=== PATIENT | female | born 1950 | race Caucasian/White ===

== ENCOUNTER 2020-08-27 12:57 | Outpatient (CLI) | payer MEDICARE, BC, SELFPAY | END 2020-08-27 12:58 | disposition home or self-care (01) | LOC: ANHAUDIO 12:59 | PROVIDERS: PCP Internal Medicine; Visit Provider Otolaryngology | DX: H93.19 Tinnitus, unspecified ear (principal); H90.3 Sensorineural hearing loss, bilateral | CPT/HCPCS: 92557; 92567 ==

== ENCOUNTER → 2020-10-02 13:18 | Outpatient (CLI) | payer MEDICARE, BC, SELFPAY ==
--- NOTE | ~2020-10-02 | MM_ITS ---
EXAMINATION: MM screening [facility] w [facility] HISTORY: Screening TECHNIQUE: Craniocaudal and mediolateral oblique 3-D tomosynthesis images were obtained and synthetic 2-D images were generated. CAD analysis was submitted and interpreted. COMPARISON: Comparison to multiple prior studies sequentially, with oldest reviewed study dated 08/29. BREAST PARENCHYMAL COMPOSITION: The breasts are heterogeneously dense, which may obscure small masses . FINDINGS: There is no evidence of suspicious mass, calcification, or architectural distortion to sugg est malignancy in either breast. There has been no suspicious interval change. IMPRESSION: 1. No mammographic evidence of malignancy. 2. Recommend routine screening mammography in one year. BI-RADS Category 2: Benign finding(s). Reviewed, dictated and finalized at location D. OLOGY MANAGER
== END ==
PROVIDERS: Visit Provider Nurse Practitioner
DX: Z12.31 Encounter for screening mammogram for malignant neoplasm of breast (principal)
CPT/HCPCS: 77063; 77067

== ENCOUNTER → 2021-04-29 10:31 | Outpatient (CLI) | payer MEDICARE, BC, SELFPAY ==
--- NOTE | ~2021-04-29 | DEXA_ITS ---
Bone Density Report Name: Maxine Fajardo Age: 70 Sex: Female Ethnicity: White Date of : 1950 Indication: postmenopausal; screening for osteoporosis; height loss; hysterectomy; Referring Provider: Queenie Farley Study: Bone densitometry was performed. Exam Date: April 29, 2021 Accession number: [id number] Bone Density: Region BMD T-score Z-score Classification AP Spine (L1-L4) 1.018 -0.3 1.9 Normal Femoral Neck (Left) 0.851 0.0 1.9 Normal Total Hip (Left) 0.939 0.0 1.6 Normal Femoral Neck (Right) 0.936 0.8 2.7 Normal Total Hip (Right) 0.935 -0.1 1.5 Normal Total Hip Mean 0.937 -0.1 1.6 Normal World Health Organization criteria for BMD impression classify patients as: Normal (T-score at or above -1.0), Osteopenia (T-score between -1.0 and -2.5), or Osteoporosis (T-score at or below -2.5). 10-year Fracture Risk: FRAX not reported because: All T-scores for Spine Total, Hip Total, Femoral Neck at or above -1.0 Previous Exams: Region Exam Age BMD T-score BMD Change BMD Change Date g/cm2 vs Baseline vs Previous AP Spine(L1-L4) 04/29/2021 70 1.018 -0.3 0.010 0.014 01/02/2019 68 1.005 -0.4 -0.003 -0.049 12/23/2011 61 1.054 0.1 0.046* 0.046* 07/27/2008 57 1.008 -0.4 Total Hip(Left) 04/29/2021 70 0.939 0.0 0.046 -0.012 01/02/2019 68 0.951 0.1 0.058 0.024 12/23/2011 61 0.927 -0.1 0.034* 0.034* 07/27/2008 57 0.893 -0.4 Total Hip(Right) 04/29/2021 70 0.935 -0.1 0.001 0.031* 01/02/2019 68 0.904 -0.3 -0.030 -0.019 12/23/2011 61 0.923 -0.2 -0.011 -0.011 07/27/2008 57 0.934 -0.1 *Denotes significance at 95% confidence level, LSC for AP Spine = 0.022 g/cm2, LSC for Total Hip = 0.027 g/cm2 Clinical Information Provided by Patient: Has used the following medications: Vitamin D Has the following medical conditions: Hysterectomy Patient maximum height was 64.5 Menopause Age: 51 No regular weight bearing exercise Drinks caffeinated beverages Onset of menses at age 11 Number of children 1 Impression: The patient has normal bone mass. No significant bone loss was observed. Discussion: BONE DENSITY IS ABOVE THE MINIMUM DESIRABLE LEVEL AT ALL SKELETAL SITES TESTED. This patient?s bone mineral density is above the minimum jan
== END ==
PROVIDERS: PCP Internal Medicine; Visit Provider Nurse Practitioner
DX: Z78.0 Asymptomatic menopausal state (principal)
CPT/HCPCS: 77080

== ENCOUNTER → 2022-02-10 13:12 | Outpatient (CLI) | payer MEDICARE, BC, SELFPAY ==
--- NOTE | ~2022-02-10 | MM_ITS ---
EXAMINATION: MM screening [facility] BI w costa HISTORY: Screening mammogram TECHNIQUE: Craniocaudal and mediolateral oblique 3-D tomosynthesis images were obtained and synthetic 2-D images were generated. CAD analysis was submitted and interpreted. COMPARISON: 10/02/2020, 01/02/2019, 04/05/2017 BREAST PARENCHYMAL COMPOSITION: There are scattered areas of fibroglandular density. FINDINGS: Scattered benign-appearing calcifications are present. There is no suspicious mass, calcifi cation, or architectural distortion to suggest malignancy in either breast. There has been no suspici ous interval change. IMPRESSION: 1. No mammographic evidence of malignancy. 2. Recommend routine screening mammography in one year. BI-RADS Category 2: Benign finding(s). Reviewed, dictated and finalized at location A.
== END ==
PROVIDERS: PCP Internal Medicine; Visit Provider Nurse Practitioner
DX: Z12.31 Encounter for screening mammogram for malignant neoplasm of breast (principal)
CPT/HCPCS: 77063; 77067

== ENCOUNTER 2022-07-13 11:20 | Outpatient (CLI) | payer MEDICARE, BC, SELFPAY ==
--- NOTE | ~2022-07-13 | XR_ITS ---
EXAMINATION: XR foot RT min 3V DATE: 07/13/2022 11:56 INDICATION: Right foot pain TECHNIQUE: Dorsoplantar, lateral, and 2 oblique views of the right foot were obtained. COMPARISON: None. FINDINGS: There is no fracture, dislocation, or subluxation. There is moderate osteoarthritis of mult iple interphalangeal joints and at the first metatarsophalangeal joint. The soft tissues are unremark able. Posterior and plantar calcaneal enthesophytes are noted. IMPRESSION: 1. Polyarticular osteoarthritis without acute osseous abnormality. Reviewed, dictated and finalized at location A.
--- NOTE | ~2022-07-13 | XR_ITS ---
EXAMINATION: XR lumbar spine 2-3V DATE: 07/13/2022 11:55 INDICATION: Low back pain TECHNIQUE: Anteroposterior and lateral views of the lumbar spine, and cone-down lateral view of the l umbosacral junction were obtained. COMPARISON: 01/17/2019 FINDINGS: There are 2 mm of stable anterolisthesis of L3 on L4 and 6 mm of stable anterolisthesis of L4 on L5. The vertebral body heights are normal. There is mild loss of intervertebral disc space heig ht at L4-5 and L5-S1. There is no fracture. There is moderate osteoarthritis of the lower lumbar spin e. Calcified atherosclerosis is noted. Small degenerative osteophytes project from the anterior endpl ates of multiple vertebral bodies. IMPRESSION: 1. Moderate lumbar spondylosis without acute findings or significant interval change. Reviewed, dictated and finalized at location A.
--- NOTE | ~2022-07-13 | XR_ITS ---
EXAMINATION: XR foot LT min 3V DATE: 07/13/2022 11:55 INDICATION: Left foot pain TECHNIQUE: Dorsoplantar, lateral, and 2 oblique views of the left foot were obtained. COMPARISON: None. FINDINGS: There is a healed fracture of the fifth metatarsal. No acute fracture is identified. There is moderate osteoarthritis of multiple interphalangeal joints and mild osteoarthritis at the first me tatarsophalangeal joint. The soft tissues are unremarkable. Posterior and plantar calcaneal enthesoph ytes are noted. IMPRESSION: 1. Polyarticular osteoarthritis without acute osseous abnormality. Reviewed, dictated and finalized at location A.
== END 2022-07-13 11:21 | disposition home or self-care (01) ==
PROVIDERS: PCP Internal Medicine; Visit Provider Internal Medicine
DX: M19.071 Primary osteoarthritis, right ankle and foot (principal); M19.072 Primary osteoarthritis, left ankle and foot; M47.896 Other spondylosis, lumbar region
CPT/HCPCS: 72100; 73630

== ENCOUNTER → 2023-04-22 12:36 | Outpatient (CLI) | payer MEDICARE, BC, SELFPAY ==
--- NOTE | ~2023-04-22 | MM_ITS ---
EXAMINATION: MM screening [facility] BI w [facility] HISTORY: Screening mammogram TECHNIQUE: Craniocaudal and mediolateral oblique 3-D tomosynthesis images were obtained and synthetic 2-D images were generated. CAD analysis was submitted and interpreted. COMPARISON: 02/10/2022, 10/02/2020, 01/02/2019 BREAST PARENCHYMAL COMPOSITION: There are scattered areas of fibroglandular density. FINDINGS: Scattered benign-appearing calcifications are present. No suspicious mass, calcification, o r architectural distortion are identified in either breast to suggest malignancy. There has been no s uspicious interval change. IMPRESSION: 1. No mammographic evidence of malignancy. 2. Recommend routine screening mammography in one year. BI-RADS Category 2: Benign finding(s). Reviewed, dictated and finalized at location A.
== END ==
PROVIDERS: PCP Family Medicine; Visit Provider Family Medicine
DX: Z12.31 Encounter for screening mammogram for malignant neoplasm of breast (principal)
CPT/HCPCS: 77063; 77067

== ENCOUNTER → 2023-09-24 09:54 | Outpatient (CLI) | payer MEDICARE, BC, SELFPAY ==
--- NOTE | ~2023-09-24 | XR_ITS ---
EXAMINATION: XR_[id number]_CR DATE: 09/24/2023 10:09 INDICATION: Left foot pain. TECHNIQUE: 4 views of left foot standing were obtained. COMPARISON: None. FINDINGS: Bone alignment is normal. No acute fracture. There is an old healed fracture of diaphysis o f fifth metatarsal. There is moderate osteoarthritis of second tarsometatarsal joint. There is mild o steoarthritis of first metatarsophalangeal joint and some the interphalangeal joints. There are enthe sophytes at the posterior and plantar aspects of calcaneal tuberosity. IMPRESSION: 1. Polyarticular osteoarthritis. Reviewed, dictated and finalized at location E.
--- NOTE | ~2023-09-24 | XR_ITS ---
EXAMINATION: XR_[id number]_CR DATE: 09/24/2023 10:09 INDICATION: Right foot pain. TECHNIQUE: 4 views of right foot standing were obtained. COMPARISON: None. FINDINGS: Bone alignment is normal. No fracture. There is mild osteoarthritis of first metatarsophala ngeal joint and some of the interphalangeal joints and midfoot joints. There is moderate osteoarthrit is of second tarsometatarsal joint. There are enthesophytes at the posterior and plantar aspects of c alcaneal tuberosity. IMPRESSION: 1. Polyarticular osteoarthritis. Reviewed, dictated and finalized at location E.
== END ==
PROVIDERS: PCP Family Medicine; Visit Provider Family Medicine
DX: M19.071 Primary osteoarthritis, right ankle and foot (principal); M19.072 Primary osteoarthritis, left ankle and foot
CPT/HCPCS: 73630

== ENCOUNTER 2024-07-28 10:35 | Outpatient (CLI) | payer MEDICARE, BC, SELFPAY ==
--- NOTE | ~2024-07-28 | DEXA_ITS ---
Bone Density Report Name: DAVE MCPHERSON Age: 73 Sex: Female Ethnicity: White Date of : 1950 Indication: postmenopausal; screening for osteoporosis; hysterectomy; Referring Provider: RA YOUNG Study: Bone densitometry was performed. Exam Date: July 28, 2024 Accession number: [id number] Bone Density: Region BMD T-score Z-score Classification AP Spine(L1-L4) 1.042 0.0 2.3 Normal Femoral Neck (Left) 0.884 0.3 2.4 Normal Total Hip (Left) 1.003 0.5 2.3 Normal Femoral Neck (Right) 0.866 0.2 2.2 Normal Total Hip (Right) 1.000 0.5 2.2 Normal Total Hip Mean 1.002 0.5 2.3 Normal World Health Organization criteria for BMD impression classify patients as: Normal (T-score at or above -1.0), Osteopenia (T-score between -1.0 and -2.5), or Osteoporosis (T-score at or below -2.5). 10-year Fracture Risk: FRAX not reported because: All T-scores for Spine Total, Hip Total, Femoral Neck at or above -1.0 Clinical Information Provided by Patient: Has used the following medications: Vitamin D Has the following medical conditions: Hysterectomy Patient maximum height was 63 No regular weight bearing exercise Does not regularly consume dairy products Drinks caffeinated beverages Onset of menses at age 11 Number of children 1 Impression: The patient has normal bone mass. Discussion: LOW RISK OF FRACTURE; BONE DENSITY IS WELL ABOVE THE MINIMUM DESIRABLE LEVEL AND ABOVE AVERAGE FOR AGE AND SEX AT ALL SKELETAL SITES TESTED. This person's bone density is above expected limits for age and sex. This is rarely clinically significant, but should be pursued if there are significant musculoskeletal complaints. The patient should follow a healthful lifestyle (good nutrition with adequate calcium and vitamin D, and appropriate weight-bearing exercise). Follow-Up: Consider repeating this study in 5 years or sooner if there is some new clinical indication. Reported by: ELVIE on 07/28/2024 11:05:00 AM. Reviewed, dictated and finalized at location ACarol CONROY
== END 2024-07-28 10:36 | disposition home or self-care (01) ==
PROVIDERS: PCP Family Medicine; Visit Provider Family Medicine
DX: M85.88 Other specified disorders of bone density and structure, other site (principal)
CPT/HCPCS: 77080

== ENCOUNTER 2024-10-05 09:29 | Outpatient (CLI) | payer MEDICARE, BC, SELFPAY ==
--- NOTE | ~2024-10-05 | MM_ITS ---
EXAMINATION: MM screening [facility] w [facility] HISTORY: Screening TECHNIQUE: Craniocaudal and mediolateral oblique 3-D tomosynthesis images were obtained and synthetic 2-D images were generated. CAD analysis was submitted and interpreted. COMPARISON: Comparison to multiple prior studies sequentially, with oldest reviewed study dated 08/29. BREAST PARENCHYMAL COMPOSITION: Not dense: There are scattered areas of fibroglandular density. FINDINGS: There is no evidence of suspicious mass, calcification, or architectural distortion to sugg est malignancy in either breast. There has been no suspicious interval change. IMPRESSION: 1. No mammographic evidence of malignancy. 2. Recommend routine screening mammography in one year. BI-RADS Category 1: Negative Reviewed, dictated and finalized at location B. [employer]
== END 2024-10-05 09:30 | disposition home or self-care (01) ==
PROVIDERS: PCP Family Medicine; Visit Provider Family Medicine
DX: Z12.31 Encounter for screening mammogram for malignant neoplasm of breast (principal)
CPT/HCPCS: 77063; 77067

== ENCOUNTER 2025-01-09 10:01 | Emergency (ER) | payer MEDICARE, BC, SELFPAY ==
[2025-01-09 10:04] VITALS: BP 146/74; PULSE 85; RESP 16; TEMP 36.6; O2SAT 97
--- OUTSIDE RECORDS SUMMARY | 2025-01-09 11:03 | XMS_ITS | Continuity of Care Document ---
Author Organization [facility] Address [address] [place] [address] Phone Care Team Providers Care Flower Grower Name Role Phone Remigio Gupta DO Unavailable Unavailable Advance Directives Directive Yes / No Effective Date File Name No Information Encounters Encounter Description Practice Location Reason(s) For Visit Diagnoses Date Provider Providers Copied on Encounter [facility], [address], [place], [place], [id number], [place] tel:[phone] [facility] ([facility]) No Information [facility]. [address] [facility], [place], [address], [place]. tel: [phone] Family History Family Member Type Diagnosis Age At Onset No Information Payers Payer name Insurance type Covered libertarian ID Authoriza tion(s) No Information Social History Type Description Quantity Date Captured Comments Sex Female Smoking Status No Information Chief Complaint And Reason For Visit No Information Reason For Referral Reason For Referral No Information History Of Present Illness Encounter Date Complaint History Of Prese nt Illness No Information Functional Status Date Functional Assessmen t No Information Instructions Date Instruction Additional Infor mation No Information Assessments Type Assessment Date No Information Patient Care Teams Name Effective Dates (start - stop) Status Members No Information
--- OUTSIDE RECORDS SUMMARY | 2025-01-09 13:27 | XMS_ITS | Continuity of Care Document ---
Author Organization [facility] Address [address] [place] [address] Phone Care Team Providers Care Assistant Dean Of Students Name Role Phone Remigio Gupta DO Unavailable Unavailable Advance Directives Directive Yes / No Effective Date File Name No Information Encounters Encounter Description Practice Location Reason(s) For Visit Diagnoses Date Provider Providers Copied on Encounter [facility], [address], [place], [place], [id number], [place] tel:[phone] [facility] No Information [facility]. [address] [facility], [place], [address], [place]. tel: [phone] Family History Family Member Type Diagnosis Age [...]
== END 2025-01-09 13:00 | disposition left against medical advice (07) ==
LOC: ANHED 12:43
PROVIDERS: PCP Family Medicine
DX: R51.9 Headache, unspecified (principal)
CPT/HCPCS: 99199

== ENCOUNTER 2025-01-10 05:09 | Emergency (ER) | payer MEDICARE, BC, SELFPAY ==
--- NOTE | ~2025-01-10 | CT_ITS ---
CT ANGIOGRAM NECK AND HEAD History: Vision changes. Technique: Axial noncontrast imaging of the brain was performed. Serial spiral axial images through t he head and neck were then obtained during arterial phase IV injection of 100 cc of Omnipaque 350. 3- D postprocessing and MIP images were then reconstructed on the remote workstation. Dose reduction reji hnique was used on this scan by utilizing automated exposure control and iterative reconstruction reji hnique. The dose-length product (DLP) was 1736.05 mGy-cm. CTA neck findings: Bilateral vertebral arteries are patent. Bilateral common carotid, internal carot id, and external carotid arteries are patent. There is large calcified plaque at the right carotid bi furcation, with 60-70% stenosis of the proximal right internal carotid artery. There is also calcifie d plaque at the proximal left internal carotid artery, without stenosis. No large vessel occlusion. N o aneurysm. The proximal right internal carotid artery demonstrates 60-70% stenosis relative to the n ormal distal artery lumen diameter. The proximal left internal carotid artery demonstrates 0% stenosi s relative to the normal distal artery lumen diameter. CTA head findings: Distal vertebral arteries, basilar artery, and posterior cerebral arteries are pat ent. Distal internal carotid arteries, middle cerebral arteries, and anterior cerebral arteries are p atent. No large vessel occlusion or stenosis. No aneurysm. Axial noncontrast imaging of the brain is unremarkable. No acute infarct, intracranial hemorrhage, or mass lesion identified. No mass effect or midline shift. There are minimal chronic microvascular isc hemic changes in the periventricular white matter. The ventricles and subarachnoid spaces are nondila yonatan. Paranasal sinuses and mastoid air cells are clear. Calvarium intact. Impression: 60-70% stenosis of the proximal right internal carotid artery related to large calcified plaque. Reviewed, dictated and finalized at location [facility] [employer] Impression: 60-70% stenosis of the proximal right internal carotid artery related to large calcified plaque.
--- OUTSIDE RECORDS SUMMARY | 2025-01-10 05:12 | XMS_ITS | Continuity of Care Document ---
Author Organization [facility] Address [address] [place] [address] Phone Care Team Providers Care Infrastructure Administrator Name Role Phone Remigio Gupta DO Unavailable Unavailable Advance Directives Directive Yes / No Effective Date File Name No Information Encounters Encounter Description Practice Location Reason(s) For Visit Diagnoses Date Provider Providers Copied on Encounter [facility], [address], [place], [place], [id number], [place] tel:[phone] [facility] No Information [facility]. [address] [facility], [place], [address], [place]. tel: [phone] Family History Family Member Type Diagnosis Age At Onset No Information Payers Payer name Insurance type Covered constitution party ID Authoriza tion(s) No Information Social History [...]
[2025-01-10 05:16] VITALS: BP 135/69; PULSE 70; RESP 18; TEMP 36.8; O2SAT 98
--- NOTE | 2025-01-10 05:36 | ED_ITS ---
HPI - Headache General Chief Complaint: Headache Stated Complaint: occular migraines Time Seen by Provider: 01/10/25 05:36 Source: patient and family Mode of arrival: ambulatory Limitations: no limitations History of Present Illness HPI Narrative: Patient presents with report of ocular migraine which she diagnosed herself with. Was supposed to have an eye doctor appointment today but it was just rescheduled. No jaw cladication. Has had a left sided headache x4 in the past 3 weeks. The pain will improve but never fully goes away. Occurs intermittently, this episode tarted Wednesday. Has an appointment with a neurologist in january. Has had similar in the past but seem to be increasing in frequency. No trauma/anticoagulation. No fevers. No photophobia or phonophobia. Pain is along the left side of her head, mosque. No eye pain but pain behind eye. No one with similar symptoms includng not in house. Has never had CT imaging before as part of headache work. States she will see zig zag lines and then had a straight horizontal white line across her vision. Denies that there was any loss of vision or black line like a curtain above or below. No nausea, vomiting. She was dizzy before but not now. No flahes/floaters. Occasionally has blurred vision but now now. Related Data Home Medications ?Medication ?Instructions ?Recorded ?Confirmed ?Last Taken ?Type omega 6-tcu-wyl-fish oil 1,000 mg 1 cap PO BID 06/03/20 01/10/25 01/09/25 History (120 mg-180 mg) capsule (Fish Oil) multivit with minerals-folic acid 1 tablet PO BID 12/09/20 01/10/25 01/09/25 History 200 mcg-biotin 300 mcg chew tablet (Women's Multivitamin with Biotin) Allergies Allergy/AdvReac Type Severity Reaction Status Date / Time Penicillins Allergy Unknown Rash Verified 01/10/25 05:38 [facility] Past Medical History Medical History Postmenopausal Screening for breast cancer Type 2 diabetes mellitus without complication, with no history of insulin use Surgical History Surgical History H/O tubal ligation History of hysterectomy Family History Family History Sibling Family history of cystic fibrosis Mother Diabetes mellitus, Onset Age: 87 Family history of dementia, Onset Age: 87 Father Family history of chronic obstructive pulmonary disease Patient's father is , Onset Age: 78 Social History Social History Smoking status: Never smoker Second hand tobacco smoke exposure: Yes Alcohol intake: never Substance use: never Substance use type: does not use Lack of Transportation: No Lack of Food: Never True Current Housing: I Have Housing Concerned About Future Housing: No Difficulty Paying Gas/Electric Bills: No Difficulty Paying for Meds: No Currently Unemployed: No Difficulty w/ Childcare or Family Care: No Living arrangements: with family Additional living arrangements comments: Occupation/Education: retired Gender identity (if verbalized by the patient): Female Spiritual care concerns: No Exam 2 Narrative: GENERAL: Well-appearing, well-nourished, and in no acute distress. HEAD: Normocephalic, atraumatic. No TTP along mosque. EYES: Non injected, non icteric. PERRL. Horizontal EOMI w/o nystagmus. No loss of peripheral visual haines. ENT: Nares clear, no rhinorrhea or epistaxis. NECK: Supple. Rull ROM of neck demonstrated. CHEST: Speaking in full sentences. No respiratory distress. HEART: Regular rate and rhythm. . ABDOMEN: Soft, nondistended. EXTREMITIES: Normal range of motion. No lower extremity edema. SKIN: Warm, dry, no rash. NEURO: No focal deficits. Alert and oriented x3. Speaks clearly without aphaisa or dysarthria. No extinction. Sensation intact throughout. No motor drift. Follows commands. no facial asymmetry. PSYCH: Normal mood and affect. Course Vital Signs Vital signs: Vital Signs Temperature 98.3 F 01/10/25 05:16 Pulse Rate 70 01/10/25 05:16 Respiratory Rate 18 01/10/25 05:16 Blood Pressure 135/69 01/10/25 05:16 Pulse Oximetry 98 01/10/25 05:16 Temperature 98.2 F 01/10/25 09:27 Pulse Rate 67 01/10/25 09:27 Respiratory Rate 20 01/10/25 09:27 Blood Pressure 127/65 01/10/25 09:27 Pulse Oximetry 98 01/10/25 09:27 MDM - Headache MDM Narrative Medical decision making narrative: Patient presents with a left sided headache associated with zig zag lines that, as described, sound consistent with scintillating scotoma. In the emergency department they are afebrile with vital signs within normal limits. After obtaining the patient's history and performing a physical exam, the headache is most likely due to benign etiology. The extensive neurological examination is non-focal, there are no high-risk features on history, vital signs are stable, and the patient is non-toxic appearing. The Ddx for the patient's headache is tension headache, migraine, or other headache of non-emergent etiology. In particular, her symptoms do sound consistent with a migraine and an ocular migrane at that. Unlikely SAH: headache is non-thunderclap. Headache has been going on intermittently x3 weeks, similar to headaches in the past. Unlikely subdural/epidural hematoma: no history of trauma, no anticoagulation Unlikely meningitis: afebrile, no meningismus, no photophobia Considered temporal arteritis: pt >60 years old. Reports pain but No tenderness in temporal area or jaw claudication. Unlikely acute angle glaucoma: PERRL, no eye pain Unlikely carbon monoxide poisoning: no other house members with similar symptoms However, given her age and no prior imaging and given frequency of headaches is worsening, will proceed with imaging. Visual acuity 20/70 L and 20/100 R, thus better on the affected side. CRP normal as is ESR. She does have some evidence of carotid stenosis but not on the affected side. The patient's headache was treated symptomatically with ketorolac, benadryl compazine; magnesium. Upon reevaluation, she states she is markedly improved and headache has resolved. Will give 1 time dose of steroid to reduce the incidence of rebound/bounce-back headache. I discussed patient's workup with her extensively and the fact that this does sound classically like ocular migraines however the indications for returning immediately to the emergency department such as unilateral weakness, slurred speech, curtain veil /loss of vision. Also advised that she follow up outpatient with PCP for the carotid stenosis. She verifies understanding and is in agreement. Also advised to rescheduled her eye appointment and keep her neurology appointment in January. Discharged with prescriptions for OTC anaglesic medications. Lab Data Attestation: I reviewed the patient's lab results. 01/10/25 06:10 01/10/25 06:10 Labs: Lab Results 01/10/25 Range/Units 06:10 WBC 7.3 (4.5-10.0) K/mm3 RBC 4.79 (4.2-5.4) M/mm3 Hgb 14.3 (12.0-15.0) g/dL Hct 42.7 (37.0-47.0) % MCV 89.1 (80-100) fl MCH 29.9 (26-34) pg MCHC 33.5 (32-36) g/dl RDW 12.5 (11.5-14.5) % Plt Count 183 (150-375) k/mm3 MPV 10.4 (7.4-10.4) fl Immature Gran % (Auto) 0.3 (0-0.5) % Neut % (Auto) 64.3 (45.5-73.1) % Lymph % (Auto) 24.8 (18.3-44.2) % Crisp % (Auto) 7.6 (2.6-8.5) % Eos % (Auto) 2.3 (0-4.4) % Baso % (Auto) 0.7 (0.2-1.2) % Lymph # (Auto) 1.82 (0.9-3.2) K/mm3 Crisp # (Auto) 0.6 (0.1-0.6) K/mm3 Eos # (Auto) 0.2 (0-0.3) K/mm3 Baso # (Auto) 0.1 (0.0-0.1) K/mm3 Abs Immat Gran (auto) 0.02 (0.00-0.031) K/mm3 Absolute Neuts (auto) 4.7 (1.3-6.7) K/mm3 Absolute Nucleated RBC 0.000 (0.0-0.012) K/mm3 Nucleated RBC % 0.0 (0.0-0.2) % ESR 16 (0-20) mm/hr Sodium 139 (137-145) mmol/L Potassium 4.3 (3.4-5.0) mmol/L Chloride 102 (98-107) mmol/L Carbon Dioxide 29 (22-30) mmol/L Anion Gap 8 (4-12) mmol/L BUN 13 (7-17) mg/dL Creatinine 0.70 (0.7-1.0) mg/dL Estim Creat Clear Calc 63 ml/min Estimated GFR > 60 (59 - ) Glucose 132 H (65-110) mg/dL Calcium 9.5 (8.4-10.2) mg/dL Magnesium 1.9 (1.6-2.3) mg/dL C-Reactive Protein < 0.5 (<1.0) mg/dL Imaging Data Radiologist's impression: 60-70% stenosis of the proximal right internal carotid artery related to large calcified plaque. ECG Data EKG #1: Attestation: I personally reviewed and interpreted this ECG as follows: ECG completion date: 01/10/25 ECG completion time: 06:05 Prior ECG tracings: not available for review (No prior for comparison) Interpretation: Normal sinus rhythm at a rate of 67 beats per minute. Prolonged OR interval at 216 milliseconds consistent with a first-degree AV block. QRS 77. QT/QTC 367/382. Good R-wave progression across the precordial leads. No T-wave inversions. Discharge Plan Discharge Clinical Impression: First degree atrioventricular block by electrocardiogram, More than 50 percent stenosis of right internal carotid artery, Ocular migraine Patient Disposition: Home, Self-Care Condition: Stable Instructions: Antibiotic Form, Carotid Artery Disease (DC), Ocular Migraine (ED) Additional Instructions: Acetaminophen/Tylenol (maximum 4000 mg per day) is safe to take with NSAIDs (ibuprofen/Motrin) for pain relief. Incidentally, it was found that you have 60-70% stenosis of the proximal right internal carotid artery related to large calcified plaque. Your primary care physician can help you follow-up on this as well helping manage your ocular migraines moving forward. Keep your upcoming appointment to see Neurology. Return to the emergency department with any new or worsening symptoms as we discussed. Patient Language: Telugu Prescriptions: New acetaminophen 500 mg capsule 1,000 mg PO Q6H PRN (Reason: pain) Qty: 30 0RF ibuprofen 600 mg tablet 600 mg PO TID PRN (Reason: pain) Qty: 30 0RF No Action cholecalciferol (vitamin D3) 50 mcg (2,000 unit) tablet 50 mcg PO DAILY Qty: 90 1RF Rx Instructions: Start 2000unit daily dose after you complete the eight weeks of the [id number] regimen. metformin 500 mg tablet 500 mg PO DAILY Qty: 90 1RF rosuvastatin 20 mg tablet 20 mg PO DAILY Qty: 90 1RF omega 9-zze-coi-fish oil [Fish Oil] 1,000 mg (120 mg-180 mg) capsule 1 cap PO BID Women's Multivitamin w-Biotin 200-300 mcg tablet,chewable 1 tablet PO BID zolpidem [Ambien CR] 6.25 mg tablet,ext release multiphase 6.25 mg PO QHS PRN (Reason: insomnia) Qty: 90 0RF Follow-up/Referrals: Claudine Dahl DO [Primary Care Provider] - Time of Disposition: 07:55
--- OUTSIDE RECORDS SUMMARY | 2025-01-10 05:50 | XMS_ITS | Continuity of Care Document ---
Author Organization [facility] Address [address] [place] [address] Phone Care Team Providers Care Stranding Supervisor Name Role Phone Remigio Gupta DO Unavailable Unavailable Advance Directives Directive Yes / No Effective Date File Name No Information Encounters Encounter Description Practice Location Reason(s) For Visit Diagnoses Date Provider Providers Copied on Encounter [facility], [address], [place], [place], [id number], [place] tel:[phone] [facility] No Information [facility]. [address] [facility], [place], [address], [place]. tel: [phone] Family History Family Member Type Diagnosis Age At Onset No Information Payers Payer name Insurance type Covered democrat ID Authoriza tion(s) No Information Social History [...]
--- NOTE | 2025-01-10 05:56 | ECG_ITS ---
Test Date: 2025-01-10 06:05:11 Measurements Intervals [place] Rate: 67 P: 39 IN: 216 QRS: -28 QRSD: 77 T: 29 QT: 367 QTc: 388 Interpretive Statements SINUS RHYTHM WITH FIRST DEGREE AV BLOCK LOW QRS VOLTAGE IN PRECORDIAL LEADS POSSIBLE INFERIOR MYOCARDIAL INFARCTION , PROBABLY OLD BASELINE ARTIFACT- I, II, III, AVR, AVL, AVF ABNORMAL ECG No previous ECG available for comparison Electronically Signed On 01-10-2025 07:09:30 [employer] by Romulo Coleman D.O.
[2025-01-10 06:16] LABS: Basophils Absolute Auto 0.1 K/mm3 (0.0-0.1); Basophils Percent Auto 0.7 % (0.2-1.2); Eosinophils Absolute Auto 0.2 K/mm3 (0-0.3); Eosinophils Percent Auto 2.3 % (0-4.4); Hematocrit 42.7 % (37.0-47.0); Hemoglobin 14.3 g/dL (12.0-15.0); Immature Granulocyte Absolute 0.02 K/mm3 (0.00-0.031); Immature Granulocyte Percent A 0.3 % (0-0.5); Lymphocytes Absolute Auto 1.82 K/mm3 (0.9-3.2); Lymphocytes Percent Auto 24.8 % (18.3-44.2); Mean Corpuscular HGB Conc 33.5 g/dl (32-36); Mean Corpuscular Hemoglobin 29.9 pg (26-34); Mean Corpuscular Volume 89.1 fl (80-100); Mean Platelet Volume 10.4 fl (7.4-10.4); Monocytes Absolute Auto 0.6 K/mm3 (0.1-0.6); Monocytes Percent Auto 7.6 % (2.6-8.5); Neutrophils Absolute Auto 4.7 K/mm3 (1.3-6.7); Neutrophils Percent Auto 64.3 % (45.5-73.1); Platelet Count Result 183 k/mm3 (150-375); Red Blood Count 4.79 M/mm3 (4.2-5.4); Red Cell Distribution Width 12.5 % (11.5-14.5); White Blood Count 7.3 K/mm3 (4.5-10.0)
[2025-01-10 06:31] LABS: Anion Gap 8 mmol/L (4-12); Blood Urea Nitrogen 13 mg/dL (7-17); CRP < 0.5 mg/dL (<1.0); Calcium 9.5 mg/dL (8.4-10.2); Carbon Dioxide 29 mmol/L (22-30); Chloride 102 mmol/L (98-107); Estimated CRCL calculation 63 ml/min; Estimated Glomerular Filt Rate > 60; Glucose 132 mg/dL (65-110); Potassium 4.3 mmol/L (3.4-5.0); Sodium 139 mmol/L (137-145)
[2025-01-10] MEDS: SODIUM CHLORIDE 0.9% IV 1,000 ML 999 ML IV CONT (07:05)
[2025-01-10 07:21] LABS: Erythrocyte Sedimentation Rate 16 mm/hr (0-20)
[2025-01-10] MEDS: PROCHLORPERAZINE EDISYLATE 10 MG/2 ML VIAL 5 MG IV PUSH (07:23)
[2025-01-10] MEDS: KETOROLAC 15 MG/ML VIAL (*BKC) IV PUSH (07:24)
[2025-01-10] MEDS: diphenhydrAMINE HCl INJ 50 MG/ML VIAL 25 MG IV PUSH (07:24)
[2025-01-10 07:35] LABS: Magnesium 1.9 mg/dL (1.6-2.3)
[2025-01-10] MEDS: MAGNESIUM SULF 1 GM/D5W 100 ML 1 GM/100 ML BAG IVPB (07:52)
[2025-01-10] MEDS: dexAMETHasone 2 MG TABLET 10 MG PO (08:33)
[2025-01-10 09:27] VITALS: BP 127/65; PULSE 67; RESP 20; TEMP 36.8; O2SAT 98
== END 2025-01-10 09:28 | disposition home or self-care (01) ==
PROVIDERS: Emergency Provider Student in an Organized Health Care Education/Training Program; PCP Family Medicine
DX: G43.B0 Ophthalmoplegic migraine, not intractable (principal); I65.21 Occlusion and stenosis of right carotid artery; I44.0 Atrioventricular block, first degree; E11.9 Type 2 diabetes mellitus without complications; Z90.710 Acquired absence of both cervix and uterus; Z79.84 Long term (current) use of oral hypoglycemic drugs; Z79.899 Other long term (current) drug therapy
CPT/HCPCS: 36415; 70496; 70498; 80048; 83735; 85025; 85652; 86140; 93005; 96361; 96365; 96375; 99284; J0780; J1200; J1885; J3475; J7030; J8540; Q9967

== ENCOUNTER 2025-03-22 02:52 | Day surgery (SDC) | payer MEDICARE, BC, SELFPAY ==
[2024-11-21 09:48] VITALS: BMI 30.9
--- NOTE | 2024-12-05 08:55 | SUR.PREOP ---
Patient called on 12/05/24 stating she would like to cancel her procedure due to the snow forecasted for Wednesday. She did not want to reschedule at this time but I did give her the office number to call when she is ready.
[2025-03-12 13:54] VITALS: BMI 31.0
--- OUTSIDE RECORDS SUMMARY | 2025-03-22 03:04 | XMS_ITS | Referral Summary ---
Author Organization [facility] Address [address] [place] [address] Care Team Providers Care Tufting Machine Operator Single Needle Name Role Phone Claudine Dahl DO Primary Care Provider [phone]- [phone] Encounters Date Type Department Care Team Description 03/14/2025 10:15 AM CDT Office Visit [facility] Vascular at [address] [address] Roxanna Slater MD Bilateral carotid artery stenosis (Primary Dx); Mixed hyperlipidemia 03/08/2025 10:00 AM CDT Ancillary Procedure [facility] Vascular and Vein Surgery at [address] [place] [phone] Bilateral carotid artery stenosis 02/28/2025 Orders Only [facility] Vascular at [address] [place] [phone] Roxanna Slater MD Bilateral carotid artery stenosis (Primary Dx) 02/28/2025 8:30 AM CDT Office Visit [facility] Vascular at [address] [place] [phone] Kaylee Turner NP Mixed hyperlipidemia (Primary Dx); Stenosis of carotid artery, unspecified laterality; Bilateral carotid artery stenosis; Type 2 diabetes mellitus with hyperglycemia, without long-term current use of insulin (HCC) 02/22/2025 8:30 AM CDT Office Visit [facility] Cardiology at [address] [place] [phone] Wilfredo Bang MD Stenosis of right carotid artery (Primary Dx) 01/29/2025 Orders Only [facility] Cardiology [address] [place] [address] Provider, MD John 01/10/2025 6:40 AM PIPE PRODUCTION WORKER - 01/10/2025 11:59 PM PIPE PRODUCTION WORKER Hospital Encounter [facility] [employer] [address] [place] [address] Discharge Disposition: Discharge to home or self care from Last 3 Months Allergies Active Allergy Reactions Criticality Noted Date Comments Penicillins Rash Medium Medications Vitamin D3 50 mcg (2,000 unit) tablet Take 1 tablet (2,000 Units total) by mouth daily 02/13/2025 Active rosuvastatin (CRESTOR) 20 mg tablet Take 1 tablet (20 mg total) by mouth daily 02/13/2025 Active zolpidem CR (AMBIEN CR) 6.25 mg CR tablet Take 1 tablet (6.25 mg total) by mouth nightly as needed 02/01/2025 Active acetaminophen (TYLENOL) 500 mg tablet Take 2 tablets (1,000 mg total) by mouth every 6 (six) hours as needed 01/10/2025 Active ibuprofen (ADVIL,MOTRIN) 600 mg tablet Take 1 tablet (600 mg total) by mouth 3 (three) times a day as needed for pain 01/10/2025 Active metFORMIN (GLUCOPHAGE) 500 mg tablet Take 1 tablet (500 mg total) by mouth 2 (two) times a day 02/14/2025 Active multivitamin tabletIndicatio ns:Vitamin Deficiency Prevention Take 1 tablet by mouth daily Active biotin 1 mg capsule Take 1 tablet by mouth daily Active omega-3 fatty acids-fish oil 300-1,000 mg capsule Take 2 capsules (2 g total) by mouth daily Active Active Problems Problem Noted Date Diagnosed Date Bilateral carotid artery stenosis 02/22/2025 Assessment & Plan (03/19/2025 3:11 PM CDT): CTA from [facility] with calcification and atherosclerotic changes at the carotid bifurcation however no significant stenosis on CTA, on duplex no significant stenosis as well. Needs no further testing from my standpoint, continue Crestor and can follow up with me as needed. Assessment & Plan (03/02/2025 1:41 PM CDT): Remains asymptomatic. Patient has been having ocular migraines left-sided with left-sided temporal tenderness with increased frequency. Recent ER visits did check CRP and ESR levels which are negative. CTA of the head and neck at outside [facility] images were pushed to [facility] ECMO reviewed today. Patient to follow-up in the next week with a carotid duplex. Hyperlipidemia Overview (03/02/2025): Hyperlipidemia Assessment & Plan (03/19/2025 3:11 PM CDT): Stable continue Crestor Type 2 diabetes mellitus wit h hyperglycemia, without long-term current use of insulin Overview (03/02/2025): Diabetes Social History Tobacco Use Types Packs/Day Years Used Date Smoking Tobacco: Never Passive Smoke Exposure: Past Smokeless Tobacco: Never Tobacco Cessation:Counseling Given: Not Answered Alcohol Use Standard Drinks/Week Comments No 0 (1 standard drink = 0.6 oz pur e alcohol) Comments Unknown Sex and Gender Information Value Date Recorded Sex Assigned at Not on file Legal Sex Female 2:29 AM PIPE PRODUCTION WORKER Gender Identity Not on file Sexual Orientation Not on file Last Filed Vital Signs Vital Sign Reading Time Taken Comments Blood Pressure 132/81 03/14/2025 10:54 AM CDT Pulse 79 03/14/2025 10:54 AM CDT Temperature - - Respiratory Rate - - Oxygen Saturation 99% 03/14/2025 10:54 AM CDT Inhaled Oxygen Concentration - - Weight 81.6 kg (180 lb) 03/14/2025 10:54 AM CDT Height 162.6 cm (5' 4 ) 03/14/2025 10:54 AM CDT Body Mass Index 30.9 03/14/2025 10:54 AM CDT Plan of Treatment Not on file Procedures Procedure Name Priority Date/Time Associated Diagnosis Comments US CAROTIDS DUPLEX BILATERAL Schedule Routine, Read Routine (OP Routine) 03/08/2025 10:41 AM CDT Bilateral carotid artery stenosis ECG 12-LEAD Routine 02/22/2025 12:10 PM CDT Stenosis of right carotid artery NEURO CT OUTSIDE REFERENCE Routine 01/10/2025 6:40 AM PIPE PRODUCTION WORKER LIPID PANEL Routine 01/08/2025 3:32 PM PIPE PRODUCTION WORKER from Last 3 Months Results * US Carotids Duplex Bilateral (03/08/2025 10:41 AM CDT) Anatomical Region Laterality Modality Vascular Bilateral Ultrasound 03/08/2025 10:0 9 AM CDT Narrative 03/08/2025 2:26 PM CDT Vascular & Vein Surgery [address] [facility] [place] [address] Carotid Duplex Ultrasound Report Patient Name: DAVE FAJARDO : 1950 (74y 3m) Study Date: 03/08/2025 10:09:56 AM Gender: F Lens Coating Technician: Location: [facility] Ref Provider: ROXANNA SLATER Quality: Adequate Order Provider: ROXANNA SLATER PROCEDURES: Carotid Report: Carotid duplex examination of the extracranial arteries was performed using 2D, color and spectral Doppler. INDICATIONS: Carotid stenosis seen on prior CT. HISTORY: HLD. DM. COMPARISONS: Prior CTA @ [place] 01/10/25: Rt 60-70. MEASUREMENTS: Right Value Left Value RT Prox CCA PSV 95 cm/sec LT Prox CCA PSV 85 cm/sec RT Prox CCA EDV 18 cm/sec LT Prox CCA EDV 14 cm/sec RT Distal CCA PSV 90 cm/sec LT Distal CCA PSV 62 cm/sec RT Distal CCA EDV 17 cm/sec LT Distal CCA EDV 11 cm/sec RT Prox ICA PSV 62 cm/sec LT Prox ICA PSV 49 cm/sec RT Prox ICA EDV 16 cm/sec LT Prox ICA EDV 11 cm/sec RT Mid ICA PSV 77 cm/sec LT Mid ICA PSV 84 cm/sec RT Mid ICA EDV 15 cm/sec LT Mid ICA EDV 23 cm/sec RT Distal ICA PSV 97 cm/sec LT Distal ICA PSV 96 cm/sec RT Distal ICA EDV 22 cm/sec LT Distal ICA EDV 31 cm/sec RT ECA Prx PSV 60 cm/sec LT ECA Prx PSV 68 cm/sec RT ICA/CCA 1.08 ratio LT ICA/CCA 1.55 ratio Rt Vert Dst PSV 76 cm/sec Lt Vert Dst PSV 71 cm/sec FINDINGS: Rt Common Carotid Artery: Duplex imaging of the right common carotid artery is within normal limits without evidence of atherosclerotic disease. Rt Internal Carotid Artery: The plaque in the right internal carotid artery appears to be heterogeneous and calcified. Atherosclerotic changes of the right internal carotid artery without hemodynamically significant Doppler findings. <50% stenosis. Rt External Carotid Artery: The right external carotid artery is patent without evidence of atherosclerotic plaque. Rt Vertebral Artery: The right vertebral artery is patent with antegrade flow. Lt Common Carotid Artery: Duplex imaging of the left common carotid artery is within normal limits without evidence of atherosclerotic disease. Lt Internal Carotid Artery: The plaque in the left internal carotid artery appears to be heterogeneous and calcified. Atherosclerotic changes of the left internal carotid artery without hemodynamically significant Doppler findings. <50% stenosis. Lt External Carotid Artery: The left external carotid artery is patent without evidence of atherosclerotic plaque. Lt Vertebral Artery: The left vertebral artery is patent with antegrade flow. Comments: Brachial artery systolic blood pressure is 119 on the right, 134 on the left. Unable to visualize a 0.47 cm segment of the right proximal ICA due to calcific shadowing. Unable to visualize a 0.50 cm segment of the left proximal ICA due to calcific shadowing. CONCLUSIONS: 1. No evidence of hemodynamically significant disease of the bilateral extracranial carotid system. ATTESTATION: I have reviewed and interpreted the pertinent images and measurements of this study. I attest to the conclusions in the final report that is provided above. Electronically Signed By: Roxanna Slater MD 03/08/2025 1:34:34 PM CDT Procedure Note Roxanna Slater MD - 03/08/2025 Vascular & Vein Surgery [address] [place] [address]. [place] [address] Carotid Duplex Ultrasound Report Patient Name: DAVE FAJARDO : 1950 (74y 3m) Study Date: 03/08/2025 10:09:56 AM Gender: F Lens Coating Technician: Location: [facility] Provider: ROXANNA SLATER Quality: Adequate Order Provider: ROXANNA SLATER PROCEDURES: Carotid Report: Carotid duplex examination of the extracranial arterieswas performed using 2D, color and spectral Doppler. INDICATIONS: Carotid stenosis seen on prior CT. HISTORY: HLD. DM. COMPARISONS: Prior CTA @ [place] 01/10/25: Rt 60-70. MEASUREMENTS: Right Value Left Value RT Prox CCA PSV 95 cm/sec LT Prox CCA PSV 85 cm/sec RT Prox CCA EDV 18 cm/sec LT Prox CCA EDV 14 cm/sec RT Distal CCA PSV 90 cm/sec LT Distal CCA PSV 62 cm/sec RT Distal CCA EDV 17 cm/sec LT Distal CCA EDV 11 cm/sec RT Prox ICA PSV 62 cm/sec LT Prox ICA PSV 49 cm/sec RT Prox ICA EDV 16 cm/sec LT Prox ICA EDV 11 cm/sec RT Mid ICA PSV 77 cm/sec LT Mid ICA PSV 84 cm/sec RT Mid ICA EDV 15 cm/sec LT Mid ICA EDV 23 cm/sec RT Distal ICA PSV 97 cm/sec LT Distal ICA PSV 96 cm/sec RT Distal ICA EDV 22 cm/sec LT Distal ICA EDV 31 cm/sec RT ECA Prx PSV 60 cm/sec LT ECA Prx PSV 68 cm/sec RT ICA/CCA 1.08 ratio LT ICA/CCA 1.55 ratio Rt Vert Dst PSV 76 cm/sec Lt Vert Dst PSV 71 cm/sec FINDINGS: Rt Common Carotid Artery: Duplex imaging of the right common carotidartery is within normal limits without evidence of atherosclerotic disease. Rt Internal Carotid Artery: The plaque in the right internal carotidartery appears to be heterogeneous and calcified. Atherosclerotic changes of the right internalcarotid artery without hemodynamically significant Doppler findings. <50% stenosis. Rt External Carotid Artery: The right external carotid artery is patentwithout evidence of atherosclerotic plaque. Rt Vertebral Artery: The right vertebral artery is patent with antegradeflow. Lt Common Carotid Artery: Duplex imaging of the left common carotid arteryis within normal limits without evidence of atherosclerotic disease. Lt Internal Carotid Artery: The plaque in the left internal carotid arteryappears to be heterogeneous and calcified. Atherosclerotic changes of the left internalcarotid artery without hemodynamically significant Doppler findings. <50% stenosis. Lt External Carotid Artery: The left external carotid artery is patentwithout evidence of atherosclerotic plaque. Lt Vertebral Artery: The left vertebral artery is patent with antegradeflow. Comments: Brachial artery systolic blood pressure is 119 on the right, 134on the left. Unable to visualize a 0.47 cm segment of the right proximal ICA due tocalcific shadowing. Unable to visualize a 0.50 cm segment of the left proximal ICAdue to calcific shadowing. CONCLUSIONS: 1. No evidence of hemodynamically significant disease of the bilateralextracranial carotid system. ATTESTATION: I have reviewed and interpreted the pertinent images and measurements ofthis study. I attest to the conclusions in the final report that is provided above. Electronically Signed By: Roxanna Slater MD 03/08/2025 1:34:34 PM CDT Roxanna Slater MD IMG US PROCEDURES Final Result * ECG 12 lead (02/22/2025 12:10 PM CDT) Wilfredo Bang MD ECG ORDERABLES Final Re sult * Neuro CT Outside Reference (01/10/2025 6:40 AM PIPE PRODUCTION WORKER) Narrative [email or web address] - 03/01/2025 10:16 AM CDT This order has been auto-finalized and does not contain a result. Provider Transcribed Order IMG CT PROCEDURES Fin al Result Performing Organization Address City/[facility]/ZIP Co de Phone Number [email or web address] [email or web address] * Lipid panel (01/08/2025 3:32 PM PIPE PRODUCTION WORKER) SCRIBED Cholesterol, Total 141 <200 EXTERNAL LAB SCRIBED HDL 45 >39 EXTERNAL LAB SCRIBED LDL 79 <130 EXTERNAL LAB SCRIBED Triglycerides 91 <150 EXTERNAL LAB Blood Historical Provider LAB BLOOD ORDERABLES Edit ed Result - Final EXTERNAL LAB from Last 3 Months Insurance MEDICARE [employer] [place] [employer] [employer] [place] Care Teams Tufting Machine Operator Single Needle Relationship Specialty Start Date End Date Claudine Dahl DO [address] [place] [address] [place] [address] PCP - General Family Medicine 01/16/25
--- OUTSIDE RECORDS SUMMARY | 2025-03-22 03:04 | XMS_ITS | Continuity of Care Document ---
Author Organization [facility] Address [address] [place] [address] Phone Care Team Providers Care Hand Tool Filer Name Role Phone Remigio Gupta DO Unavailable Unavailable Advance Directives Directive Yes / No Effective Date File Name No Information Encounters Encounter Description Practice Location Reason(s) For Visit Diagnoses Date Provider Providers Copied on Encounter [facility], [address], [place], [id number], [place] tel:[phone] [facility] No Information [facility]. [address] [facility], [place], [address], [place]. tel: [phone] Family History Family Member Type Diagnosis Age At Onset No Information Payers Payer name Insurance type Covered green party ID Authoriza tion(s) No Information Social [...]
--- OUTSIDE RECORDS SUMMARY | 2025-03-22 03:04 | XMS_ITS | Clinical Summary ---
Author Organization [facility] Address [address] [place] [address] Care Team Providers Care Ornamental Metal Worker Name Role Phone Claudine Dahl DO Primary Care Provider [phone]- [phone] Allergies Active Allergy Reactions Criticality Noted Date [...] Plan (03/19/2025 3:11 PM CDT): CTA from [facility] with calcification and atherosclerotic changes at [...] of the head and neck at outside facility [facility] images were pushed to [facility] reviewed today. Patient to follow-up in the next week with a carotid duplex. Hyperlipidemia Overview (03/02/2025): Hyperlipidemia Assessment & Plan (03/19/2025 3:11 PM CDT): Stable continue Crestor Type 2 diabetes mellitus wit h hyperglycemia, without long-term current use of insulin Overview (03/02/2025): Diabetes Encounters Date Type Department Care Team Description 03/14/2025 10:15 AM CDT Office Visit [facility] Vascular at [address] [place] [phone] Roxanna Slater MD Bilateral carotid artery stenosis (Primary Dx); Mixed hyperlipidemia 03/08/2025 10:00 AM CDT Ancillary Procedure [facility] Vascular and Vein Surgery at [address] [place] [address] Bilateral carotid artery stenosis 02/28/2025 8:30 AM CDT Office Visit [facility] Vascular at [address] [place] [address] Kaylee Turner NP Mixed hyperlipidemia (Primary Dx); Stenosis of carotid artery, unspecified laterality; Bilateral carotid artery stenosis; Type 2 diabetes mellitus with hyperglycemia, without long-term current use of insulin (HCC) 02/28/2025 Orders Only [facility] Vascular at [address] [place] [address] Roxanna Slater MD Bilateral carotid artery stenosis (Primary Dx) 02/22/2025 8:30 AM CDT Office Visit [facility] Cardiology at [address] [place] [address] Wilfredo Bang MD Stenosis of right carotid artery (Primary Dx) 01/29/2025 Orders Only [facility] Cardiology [address] [place] [address] ProviderJohn MD 01/10/2025 6:40 AM ROVING SIZER - 01/10/2025 11:59 PM ROVING SIZER Hospital Encounter [facility] [employer] [address] [facility] [place] [address] Discharge Disposition: Discharge to home or self care from Last 3 Months Surgical History Surgery Date Site/Laterality Comments HYSTERECTOMY Hysterectomy TUBAL LIGATION Medical History Medical History Date Comments Hx Other Medical Arrhythmias PSV T prob AVNRT Adiposity Obesity Hyperlipidemia Hyperlipidemia Diabetes mellitus (HCC) Diabetes Family History Medical History Relation Name Comments Cancer Brother 1 Cystic fibrosis Brother 2 Cystic fibrosis Brother 3 Cystic fibrosis Brother 4 COPD Father Diabetes Mother Cancer Other 1 Family history of Cancer; Diabetes Other 2 Family history of Diabetes mellitus; Relation Name Status Comments Brother 1 Brother 2 Brother 3 Brother 4 Father Mother Other 1 Other 2 Sister Social History Tobacco Use Types Packs/Day Years Used Date Smoking Tobacco: Never Passive Smoke Exposure: Past Smokeless Tobacco: Never Tobacco Cessation:Counseling Given: Not Answered Alcohol Use Standard Drinks/Week Comments No 0 (1 standard drink = 0.6 oz pur e alcohol) Comments Unknown Sex and Gender Information Value Date Recorded Sex Assigned at Not on file Legal Sex Female 2:29 AM ROVING SIZER Gender Identity Not on file Sexual Orientation Not on file Obstetrics History Last Filed Vital Signs Vital Sign Reading [...] 03/14/2025 10:54 AM CDT Plan of Treatment Health Maintenance Due Date Last Done Comments Albumin Creatinine Ratio, Urine 1950 Colon Cancer Screening-Colonoscopy 1950 Depression Screening 1950 Fall Risk Assessment 1950 Hemoglobin A1C 1950 Hepatitis C Screening 1950 Osteoporosis Screening-Bone Density Scan 1950 eGFR 1950 Dilated Eye Exam 1950 Foot Exam 1950 DTaP/Tdap/Td Vaccine (1 - Tdap) 1960 Hepatitis B Screening 1967 Pneumococcal vaccine 65+ (1 of 2 - PCV) 1968 Well Visit 65+ 2014 Covid-19 Vaccine (5 - 2023-2 5 season) 2024 04/03/2022, 10/07/2021, 02/14/2021, Additional history exists Influenza Vaccine (Season Ended) 2025 09/23/20 21 Lipid Panel 01/08/2026 01/08/2025 Zoster Vaccine Completed 01/15/2022, 08/25/2021 Procedures Procedure Name Priority Date/Time Associated Diagnosis Comments US CAROTIDS DUPLEX BILATERAL Schedule Routine, Read Routine (OP Routine) 03/08/2025 10:41 AM CDT Bilateral carotid artery stenosis ECG 12-LEAD Routine 02/22/2025 12:10 PM CDT Stenosis of right carotid artery NEURO CT OUTSIDE REFERENCE Routine 01/10/2025 6:40 AM ROVING SIZER LIPID PANEL Routine 01/08/2025 3:32 PM ROVING SIZER from Last 3 Months Results * US Carotids Duplex Bilateral (03/08/2025 10:41 AM CDT) Anatomical Region Laterality Modality Vascular Bilateral Ultrasound 03/08/2025 10:0 9 AM CDT Narrative 03/08/2025 2:26 PM CDT Vascular & Vein Surgery [facility] [place] [address] Carotid Duplex Ultrasound Report Patient Name: MAXINE FAJARDO : 1950 (74y 3m) Study Date: 03/08/2025 10:09:56 AM Gender: F Plating Tank Operator: DOC Location: [facility] Ref Provider: ROXANNA SLATER Quality: Adequate Order Provider: ROXANNA SLATER PROCEDURES: Carotid Report: Carotid duplex examination of the extracranial arteries was performed using 2D, color and spectral Doppler. INDICATIONS: Carotid stenosis seen on prior CT. HISTORY: HLD. DM. COMPARISONS: Prior CTA @ [place] 01/10/25: Rt 60-70. MEASUREMENTS: Right Value Left [...] MD - 03/08/2025 Vascular & Vein Surgery [address] [facility] [place] [address] Carotid Duplex Ultrasound Report Patient Name: MAXINE FAJARDO : 1950 (74y 3m) Study Date: 03/08/2025 10:09:56 AM Gender: F Plating Tank Operator: Location: [facility] Ref Provider: ROXANNA SLATER Quality: Adequate Order Provider: ROXANNA SLATER PROCEDURES: Carotid Report: Carotid duplex examination of the extracranial arterieswas performed using 2D, color and spectral Doppler. INDICATIONS: Carotid stenosis seen on prior CT. HISTORY: HLD. DM. COMPARISONS: Prior CTA @ [place] 01/10/25: Rt 60-70. MEASUREMENTS: Right Value Left [...] Roxanna Slater MD 03/08/2025 1:34:34 PM CDT us Roxanna Slater MD IMG US PROCEDURES Final Result * ECG 12 lead (02/22/2025 12:10 PM CDT) us Wilfredo Bang MD ECG ORDERABLES Final Re sult * Neuro CT Outside Reference (01/10/2025 6:40 AM ROVING SIZER) Narrative YVONNE_THALIA_JULISSA_E - 03/01/2025 10:16 AM CDT This order has been auto-finalized and does not contain a result. us Provider Transcribed Order IMG CT PROCEDURES Fin al Result RAD_[email or web address] * Lipid panel (01/08/2025 3:32 PM ROVING SIZER) SCRIBED Cholesterol, Total 141 <200 EXTERNAL LAB SCRIBED HDL 45 >39 EXTERNAL LAB SCRIBED LDL 79 <130 EXTERNAL LAB SCRIBED Triglycerides 91 <150 EXTERNAL LAB Blood Historical Provider MD LAB BLOOD ORDERABLES Edit ed Result - Final Performing Organization Address City/[facility]/ZIP Co de Phone Number EXTERNAL LAB from Last 3 Months Insurance MEDICARE [facility] MEDICARE [employer] [facility] Care Teams Ornamental Metal Worker Relationship Specialty Start Date End Date Claudine Dahl DO [address] [place] [address] DR GARCIA [address] [place] [address] PCP - General Family Medicine 01/16/25
[2025-03-22 07:19] VITALS: BP 137/76; PULSE 72; RESP 18; TEMP 36.4; O2SAT 96
[2025-03-22] MEDS: LACTATED RINGERS 1,000 ML 150 ML IV CONT (07:38)
[2025-03-22 07:42] LABS: Glucose Point of Care 128 mg/dl (65-105)
--- NOTE | 2025-03-22 08:18 | P.PNAN_ITS ---
Anes - Initial Pre Proc Eval Procedure: Operation Date: 03/22/25 08:30 Proposed Procedures p Screening Colonoscopy - Lester Parson MD Date/Time: 03/22/25 08:18 Surgeon: Lester Parson MD Pre Op Diagnosis: screening colon Patient Data Age: 74 Gender: F Height: 1.63 m Weight: 80.9 kg Last Vital Signs Temp 97.6 F 03/22/25 07:19 Pulse 72 03/22/25 07:19 Resp 18 03/22/25 07:19 BP 137/76 03/22/25 07:19 Pulse Ox 96 03/22/25 07:19 O2 Del Method Room Air 03/22/25 07:19 Allergies Allergy/AdvReac Type Severity Reaction Status Date / Time Penicillins Allergy Unknown Rash Verified 03/22/25 07:16 Home Medications ?Medication ?Instructions ?Recorded ?Confirmed ?Type cholecalciferol (vitamin D3) 50 50 mcg PO DAILY #90 tabs 09/14/24 03/22/25 Rx mcg (2,000 unit) tablet multivit with minerals-folic acid 1 tablet PO DAILY 01/18/25 03/22/25 History 200 mcg-biotin 300 mcg chew tablet (Women's Multivitamin with Biotin) omega 6-cnm-duz-fish oil 1,000 mg 1 cap PO DAILY 01/18/25 03/22/25 History (120 mg-180 mg) capsule (Fish Oil) metformin 500 mg tablet 500 mg PO BID #90 tabs 02/14/25 03/22/25 Rx zolpidem 6.25 mg tablet,extended 6.25 mg PO QHS PRN insomnia #90 03/05/25 03/22/25 Rx release,multiphase (Ambien CR) tabs rosuvastatin 20 mg tablet 20 mg PO DAILY #90 tabs 03/21/25 03/22/25 Rx Laboratory Tests 03/22/25 07:37 POC Capillary Glucose 128 H mg/dl (65-105) Patient hx anesthesia problems: none Family hx anesthesia problems: none Results Review: All pre-operative results and documents have been reviewed as part of the pre- operative evaluation. [facility] Past Medical History Medical History Type 2 diabetes mellitus without complication, with no history of insulin use Postmenopausal Screening for breast cancer Surgical History Surgical History History of hysterectomy H/O tubal ligation Family History Family History Sibling Family history of cystic fibrosis Mother Diabetes mellitus, Onset Age: 87 Family history of dementia, Onset Age: 87 Father Family history of chronic obstructive pulmonary disease Patient's father is , Onset Age: 78 Social History Social History Smoking status: Never smoker Second hand tobacco smoke exposure: Yes Alcohol intake: never Substance use: never Substance use type: does not use Lack of Transportation: No Lack of Food: Never True Current Housing: I Have Housing Concerned About Future Housing: No Difficulty Paying Gas/Electric Bills: No Difficulty Paying for Meds: No Currently Unemployed: No Difficulty w/ Childcare or Family Care: No Living arrangements: with family Additional living arrangements comments: Occupation/Education: retired Gender identity (if verbalized by the patient): Female Spiritual care concerns: No Anes - Eval Final PreProcedure Day of Procedure 03/22/25 08:18 Patient weight: obese Heart: regular rate and rhythm Lungs: clear to auscultation Airway: Mallampati scale class II Neurological: alert and oriented Last oral intake: >/= 8 hours ASA classification: III Emergent: no Anesthetic plan: proceed Anesthesia type and monitoring: general GIVS and standard monitoring Results Review: All pre-operative results and documents have been reviewed as part of the pre- operative evaluation. Informed Consent: The patient's anesthetic plan and its attendant risks and benefits were discussed with the patient/family/POA. Questions were solicited and answers provided to the satisfaction of the patient/family/POA.
--- NOTE | 2025-03-22 08:25 | PM.IMHP ---
H&P: HPI History of Present Illness Date/Time: 03/22/25 08:25 Chief Complaint: Screening colonoscopy Narrative: This is the patient's 2nd colonoscopy. There are no GI symptoms and there is no family history of colorectal cancer. Review of Systems Review of Systems: All systems reviewed & are unremarkable except as noted in HPI and below PMFSH Past Medical History Medical History Type 2 diabetes mellitus without complication, with no history of insulin use Postmenopausal Screening for breast cancer Surgical History Surgical History History of hysterectomy H/O tubal ligation Family History Family History Sibling Family history of cystic fibrosis Mother Diabetes mellitus, Onset Age: 87 Family history of dementia, Onset Age: 87 Father Family history of chronic obstructive pulmonary disease Patient's father is , Onset Age: 78 Social History Social History Smoking status: Never smoker Second hand tobacco smoke exposure: Yes Alcohol intake: never Substance use: never Substance use type: does not use Lack of Transportation: No Lack of Food: Never True Current Housing: I Have Housing Concerned About Future Housing: No Difficulty Paying Gas/Electric Bills: No Difficulty Paying for Meds: No Currently Unemployed: No Difficulty w/ Childcare or Family Care: No Living arrangements: with family Additional living arrangements comments: Occupation/Education: retired Gender identity (if verbalized by the patient): Female Spiritual care concerns: No Meds Home Medications and Allergies Home Medications ?Medication ?Instructions ?Recorded ?Confirmed ?Type cholecalciferol (vitamin D3) 50 50 mcg PO DAILY #90 tabs 09/14/24 03/22/25 Rx mcg (2,000 unit) tablet multivit with minerals-folic acid 1 tablet PO DAILY 01/18/25 03/22/25 History 200 mcg-biotin 300 mcg chew tablet (Women's Multivitamin with Biotin) omega 1-kpi-yxq-fish oil 1,000 mg 1 cap PO DAILY 01/18/25 03/22/25 History (120 mg-180 mg) capsule (Fish Oil) metformin 500 mg tablet 500 mg PO BID #90 tabs 02/14/25 03/22/25 Rx zolpidem 6.25 mg tablet,extended 6.25 mg PO QHS PRN insomnia #90 03/05/25 03/22/25 Rx release,multiphase (Ambien CR) tabs rosuvastatin 20 mg tablet 20 mg PO DAILY #90 tabs 03/21/25 03/22/25 Rx Allergies Allergy/AdvReac Type Severity Reaction Status Date / Time Penicillins Allergy Unknown Rash Verified 03/22/25 07:16 Vital Signs Vital Signs - 24 hr 03/22/25 07:19 Temperature 97.6 F Pulse Rate 72 Respiratory Rate 18 Blood Pressure 137/76 Pulse Oximetry 96 Oxygen Delivery Room Air Exam Const: General: cooperative and healthy appearing Resp: Effort & Inspection: normal respiratory effort and able to speak in complete sentences Auscultation: clear to auscultation bilaterally Cardio: Rate: regular rate Rhythm: regular rhythm GI: Inspection: normal to inspection GI Palp: No No hepatosplenomegaly present Auscultation: normal bowel sounds Rectal Exam: deferred Skin: General skin exam: normal color Psych: Appearance: grossly normal Mental Status: mental status grossly normal Assessment and Plan Assessment and plan (1) Screening for colon cancer: Code(s): Z12.11 - Encounter for screening for malignant neoplasm of colon Status: Acute Assessment and Plan: The patient is deemed a good candidate for the procedure. Consent signed. Will proceed.
[2025-03-22] MEDS: SIMETHICONE ORAL SUSPENSION 20 MG/0.3 ML 30 ML BOTTLE 0.6 ML IRRIGATION (08:45)
[2025-03-22 08:54] VITALS: BP 109/59; PULSE 62; RESP 20; O2SAT 96
[2025-03-22 09:04] VITALS: BP 114/62; PULSE 65; RESP 20; O2SAT 100
[2025-03-22 09:14] VITALS: BP 126/67; PULSE 62; RESP 18; O2SAT 100
== END 2025-03-22 09:23 | disposition home or self-care (01) ==
PROVIDERS: PCP Family Medicine; Referring Provider Nurse Practitioner; Visit Provider Internal Medicine Gastroenterology
PROC: 0DJD8ZZ Inspection of Lower Intestinal Tract, Via Natural or Artificial Opening Endoscopic (ICD-10-PCS; CPT 45378; principal; 2025-03-22 08:30)
DX: Z12.11 Encounter for screening for malignant neoplasm of colon (principal); E11.9 Type 2 diabetes mellitus without complications; E66.9 Obesity, unspecified; Z68.30 Body mass index [BMI] 30.0-30.9, adult; Z79.84 Long term (current) use of oral hypoglycemic drugs; Z98.890 Other specified postprocedural states; Z98.51 Tubal ligation status
CPT/HCPCS: G0121; 82948; J2003; J2704; J7120